=== PATIENT | male | born 1960 | race Caucasian/White ===

== ENCOUNTER 2017-06-01 06:09 | Day surgery (SDC) | payer BC, OTHER ==
[~2017-06-01 06:09] MED LIST: Lactated Ringers 1,000 ML IV ONE; Lactated Ringers 1,000 ML IV SCH
[2017-06-01] MEDS ORDERED: DEMEROL 50 MG IJ ONE (06:10)
[2017-06-01] MEDS ORDERED: VERSED 5 MG/5 ML IV ONE (06:10)
--- NOTE | 2017-06-01 07:44 | HP ---
DATE OF SURGERY: 06/01/2017 ADMISSION DIAGNOSIS: Epigastric pain and nausea. ANTICIPATED PROCEDURE: EGD. HISTORY OF PRESENT ILLNESS: A patient with upper abdominal pain. His HIDA scan was scheduled for 05/25/2017 now presents for EGD. PAST MEDICAL HISTORY: ALLERGIES: MONOPRIL. MEDICATIONS: Multiple. PAST SURGICAL HISTORY: Ankle, knee, cataract. SOCIAL HISTORY: Negative. FAMILY HISTORY: Negative. REVIEW OF SYSTEMS: Diabetes, heart disease, hypertension, stroke. PHYSICAL EXAMINATION: VITAL SIGNS: Normal. CHEST: Clear. COR: Regular. ABDOMEN: No palpable organomegaly or mass. IMPRESSION: Epigastric pain, nausea. PLAN: EGD.
[2017-06-01 10:35] VITALS: O2SAT 94
[2017-06-01 12:08] VITALS: BP 171/94; PULSE 77
--- NOTE | 2017-06-01 12:42 | OP ---
SURGERY DATE/TIME: 06/01/2017813 PREOPERATIVE DIAGNOSIS: Epigastric pain. POSTOPERATIVE DIAGNOSIS: Large hiatal hernia. PROCEDURE: EGD. SURGEON: Edison Tyler M.D. ANESTHESIA: IV sedation 15 minutes monitored. COMPLICATIONS: None. CONDITION: Stable. FINDINGS: Large hiatal hernia. No reflux. No gastritis. No duodenal disease. INDICATION: A patient requiring evaluation. DESCRIPTION OF PROCEDURE: Taken to endoscopy suite. IV sedation titrated. Oximetry kept over 90%. He was morbidly obese. He did have potential airway issues. The scope was introduced. The pharyngoesophageal junction was normal. Esophagus normal down the gastroesophageal junction. Gastroesophageal junction was normal other than there was a large hiatal hernia. The fundus, body, antrum, pylorus, duodenal bulb, second portion normal. Scope withdrawn and looped upon itself. No issue from below. Scope withdrawn, IMPRESSION: Large hiatal hernia but no inflammatory changes.
== END 2017-06-01 09:50 | disposition home or self-care (01) ==
LOC: SDC 06:09
PROVIDERS: ATTEND Surgery
PROC: 0DJ08ZZ Inspection of Upper Intestinal Tract, Via Natural or Artificial Opening Endoscopic (ICD-10-PCS; principal; 2017-06-01)
DX: K44.9 Diaphragmatic hernia without obstruction or gangrene (principal); R10.13 Epigastric pain
CPT/HCPCS: 82962; J2175; J2250